=== PATIENT | male | born 1980 | race Caucasian/White ===

== ENCOUNTER 2019-06-19 20:31 | Emergency (ER) | payer MEDICAID ==
[~2019-06-19] VITALS: Ht 170.2 cm; Wt 85.9 kg
[2019-06-19 22:04] VITALS: BP 138/94
== END 2019-06-19 22:12 | disposition home or self-care (01) ==
LOC: EMS 20:36
DX: R76.11 Nonspecific reaction to tuberculin skin test without active tuberculosis (principal); F15.90 Other stimulant use, unspecified, uncomplicated